=== PATIENT | female | born 1990 | race Caucasian/White ===

== ENCOUNTER 2017-05-16 20:21 | Emergency (ER) | payer MEDICAID ==
[2017-05-16] MEDS ORDERED: ACETAMINOPHEN 500 MG TAB PO ONE (21:23)
[2017-05-16] MEDS ORDERED: IBUPROFEN 600 MG TAB PO ONE (21:23)
[2017-05-16] MEDS ORDERED: HYDROCOD/APAP 5/325 PREPACK#6 BTL TAKEHOME ONE (21:37)
--- NOTE | 2017-05-16 21:37 | EDPHY ---
H & P Stated Complaint: l knee dislocation 1 hour ago, back in place with increased pain Source: Patient Exam Limitations: No limitations - Personal History LMP (Females 10-55): 22-28 Days Ago Current Tetanus/Diphtheria Vaccine: Yes - Medical/Surgical History Hx Asthma: Yes Hx Chronic Respiratory Disease: No Hx Diabetes: No Hx Cardiac Disease: No Hx Renal Disease: No Hx Cirrhosis: No Hx Alcoholism: No Hx HIV/AIDS: No Hx Splenectomy or Spleen Trauma: No Other PMH: Asthma - Social History Smoking Status: Never smoked HPI/ROS: CHIEF COMPLAINT: Knee injury HISTORY OF PRESENT ILLNESS: Patient complains of left knee pain. This started after she jumped out of the bed of her pickup truck within the past 2 hours. She says she felt her lower leg stress into a valgus position. She says her patella may have subluxed or dislocated. Her knee did not dislocate. She has sudden onset of pain over the medial aspect of the knee in mildly anteriorly. Able to bear weight but very painful to do so. Does not radiate. No numbness or tingling. No pain in the ipsilateral hip, heel or foot. No pain in the low back. No head strike or loss of conscious. No other associated complaints or modifying factors. Does have a history of previous patellar dislocation. PRIOR ORTHO INJURIES: Previous patellar dislocation and subluxation ESTABLISHED ORTHOPEDIST: None REVIEW OF SYSTEMS: Ten systems reviewed and are negative unless otherwise noted in the HPI EXAMINATION General Appearance: Alert, no distress Cardiovascular: Pulses normal throughout. Symmetric DP and PT pulses at 2+. Brisk cap refill Neurological: A&O, sensory symmetric, strength symmetric. No foot drop. Normal proprioception of the great toe Skin: Warm and dry, no rash. No lacerations abrasions or contusions Extremities: Tenderness over the medial joint line on the left knee and the MCL origin insertion. There is no laxity. There is normal extension of the knee without deficit or pain anteriorly. Negative drawer test. Negative Erwin. Range of motion of the left ankle help her fully intact. Psychiatric: Mood and affect normal DIFFERENTIAL DIAGNOSES: Including but not limited to sprain, strain, contusion, fracture, dislocation MDM: 9:37 p.m. Acute sprain of the left MCL. There is no patellar dislocation or fracture. No evidence of knee dislocation. No evidence of patellar tendon rupture. No fracture of the knee on x-ray. She is neurovascular intact distally. We will place her in an [place] wrap and provided crutches. Discharged home weight-bearing as tolerated. Mandatory follow up with Orthopedics for definitive care. Return to ER precautions for worsening pain, numbness, tingling, weakness. ED Precautions: Worsening pain. Erythema, edema, cyanosis, pallor, paresthesia or anesthesia. SUPERVISION: This patient was independently evaluated without direct examination by the attending physician. Case was discussed with attending physician. (Vinay Pierson) Constitutional: Initial Vital Signs Temperature (C) 37.0 C 05/16/17 20:23 Heart Rate 75 05/16/17 20:23 Respiratory Rate 16 05/16/17 20:23 Blood Pressure 127/87 H 05/16/17 20:23 O2 Sat (%) 96 05/16/17 20:23 O2 Delivery Mode Room Air Allergies/Adverse Reactions: Sulfa (Sulfonamide Antibiotics) Allergy (Unknown, Verified 05/16/17 20:27) Home Medications: Medication Instructions Recorded Albuterol INH Prepack [Proventil 2 puffs IH Q4 PRN #1 mdi 04/25/10 INH Prepack] Montelukast Sodium [Singulair] 4 mg PO 05/16/17 Medical Decision Making ED Course/Re-evaluation: I did not see this patient while she was in the emergency department. However her care was discussed with the PA while the patient was in the department. I agree with treatment plan and management (Vikram Chavis) - Data Points Medications Given: Discontinued Medications Acetaminophen (Tylenol) 1,000 mg PO EDNOW ONE Stop: 05/16/17 21:24 Last Admin: 05/16/17 21:36 Dose: Not Given Hydrocodone Bitart/Acetaminophen ([employer] 5/325mg Prepack#6) 1 btl TAKEHOME EDNOW ONE Stop: 05/16/17 21:38 Last Admin: 05/16/17 21:58 Dose: 1 btl Ibuprofen (Motrin) 600 mg PO EDNOW ONE Stop: 05/16/17 21:24 Last Admin: 05/16/17 21:35 Dose: 600 mg Departure - Departure Disposition: Home, Routine, Self-Care Clinical Impression: Knee MCL sprain, Acute knee pain Condition: Good Instructions: Hydrocodone/Acetaminophen (By mouth), Knee Sprain (ED) Additional Instructions: 1. Follow up with Orthopedics for definitive care 2. Weightbearing as tolerated, advance slowly 3. Return to ER for worsening pain, numbness, tingling, cyanosis or pallor 4. Ibuprofen or Aleve [id number] as instructed as needed Referrals: Nichole Huber PA [Primary Care Provider] - As per Instructions Vitaliy Marie MD [Medical Doctor] - As per Instructions
[2017-05-16 22:10] VITALS: BP 116/73; PULSE 80; RESP 15; TEMP 98.1; O2SAT 95
== END 2017-05-16 22:09 | disposition home or self-care (01) ==
DX: S83.412A Sprain of medial collateral ligament of left knee, initial encounter (principal); J45.909 Unspecified asthma, uncomplicated; X58.XXXA Exposure to other specified factors, initial encounter; Y99.8 Other external cause status; Y93.39 Activity, other involving climbing, rappelling and jumping off

== ENCOUNTER 2018-09-09 06:34 | Inpatient (IN) | payer MEDICAID ==
[2018-09-09] MEDS ORDERED: IBUPROFEN 600 MG TAB PO PRN (07:54)
[2018-09-09] MEDS ORDERED: OXYTOCIN/RINGERS LACTATE 1,000 ML IV PRN (07:54)
[2018-09-09] MEDS ORDERED: LR 1,000 ML IV PRN (07:54)
[2018-09-09] MEDS ORDERED: EPSOM SALT 454 GM TP PRN (07:54)
[2018-09-09] MEDS ORDERED: OLIVE OIL 118 ML BTL MISC PRN (07:54)
[2018-09-09] MEDS ORDERED: OXYTOCIN/RINGERS LACTATE 500 ML IV SCH (07:54)
[2018-09-09] MEDS ORDERED: LIDOCAINE 1% 300 MG/30 ML SDV SC PRN (07:54)
[2018-09-09] MEDS ORDERED: TERBUTALINE SULFATE 1 MG/ML VIAL IV PRN (07:54)
[2018-09-09] MEDS ORDERED: MISOPROSTOL 200 MCG TAB PR PRN (07:54)
[2018-09-09] MEDS ORDERED: LR 500 ML IV PRN (07:54)
[2018-09-09] MEDS ORDERED: LIDOCAINE 1% 300 MG/30 ML SDV ONE (08:02)
[2018-09-09 08:03] LABS: PLATELET COUNT 163 10^3/uL (150-400)
[2018-09-09] MEDS ORDERED: TERBUTALINE SULFATE 1 MG/ML VIAL ONE (08:03)
[2018-09-09] MEDS ORDERED: MISOPROSTOL 200 MCG TAB ONE (08:03)
[2018-09-09] MEDS ORDERED: OXYTOCIN 10 UNIT/ML VIAL ONE (08:03)
[2018-09-09] MEDS ORDERED: AMMONIA AROMATIC 1 EACH AMP IH ONE (08:03)
[2018-09-09] MEDS ORDERED: OLIVE OIL 118 ML BTL ONE (08:03)
[2018-09-09] MEDS ORDERED: fentaNYL 200 MCG, BUPIVACAINE 0.5% 20 ML in NS 100 ML EP SCH (09:30)
[2018-09-09] MEDS ORDERED: BUPIVACAINE 0.25% 30 ML SDV ONE (09:40)
[2018-09-09] MEDS ORDERED: PHENYLEPHRINE HCL 100 MCG/ML SYR ONE (09:40)
[2018-09-09] MEDS ORDERED: ONDANSETRON 4 MG/2 ML VIAL IVP PRN (10:04)
[2018-09-09] MEDS ORDERED: NALOXONE HCL 0.4 MG/ML INJ IVP PRN (10:04)
--- NOTE | 2018-09-09 10:07 | PREANESOB ---
Obstetric Pre-Anesthesia Info - General Info Proposed Procedure: Labor Epidural - Info Status: Postmature - Labor Status Indications for Labor Analgesia: Pain Control Labor Epidural: Yes Anesthesia Allergies/Adverse Reactions: Allergy/AdvReac Type Severity Reaction Status Date / Time Sulfa (Sulfonamide Allergy Unknown Verified 05/16/17 20:27 Antibiotics) Home Medications: Medication Instructions Recorded Albuterol INH Prepack [Proventil 2 puffs IH Q4 PRN #1 mdi 04/25/10 INH Prepack] Montelukast Sodium [Singulair] 4 mg PO 05/16/17 Visit Medications: Generic Name Dose Route Start Last Admin Trade Name Freq PRN Reason Stop Dose Admin Lactated Ringer's 1,000 mls @ 0 mls/hr 09/09/18 07:54 09/09/18 08:15 Lr IV 09/10/18 07:53 1,000 mls PRN PRN Administration SEE PROTOCOL CONDITIONS Protocol Per Protocol Lactated Ringer's 500 mls @ 500 mls/hr 09/09/18 07:54 Lr IV PRN PRN Maternal Hypotension Oxytocin/Lactated Ringer's 1,000 mls @ 125 mls/hr 09/09/18 07:54 Pitocin 20 Units/Lr (Premix) IV PRN PRN Post bleeding Oxytocin/Lactated Ringer's 500 mls @ 0 mls/hr 09/09/18 07:54 09/09/18 08:15 Pitocin 30 Units/Lr (Premix) IV 03/08/19 07:53 500 mls CONT MIRI Administration Protocol Per Protocol Fentanyl 200 mcg/ Bupivacaine 100 mls @ mls/hr 09/09/18 09:30 HCl 20 ml/ Sodium Chloride EP 09/19/18 09:29 CONT MIRI As Directed Fentanyl/Bupivacaine HCl 100 mls @ 0 mls/hr 09/09/18 10:30 Fentanyl/Bupivacaine/Ns 2 Mcg/Ml 0.1% (Premix EP 09/19/18 10:29 CONT MIRI Protocol As Directed Lactated Ringer's 500 mls @ 0 mls/hr 09/09/18 10:30 Lr IV 03/08/19 10:29 CONT MIRI As Directed Ibuprofen 600 mg 09/09/18 07:54 Motrin PO ONCE PRN post , pain Lidocaine HCl 300 mg 09/09/18 07:54 Lidocaine Hcl 1% SC 03/08/19 07:53 ONCE PRN episiotomy Magnesium Sulfate 454 gm 09/09/18 07:54 Epsom Salt TP 03/08/19 07:53 Q1H PRN perineal discomfort Misoprostol 800 - 1,000 mcg 09/09/18 07:54 Cytotec RI ONCE PRN Vaginal Atony/Bleeding Naloxone HCl 0.4 mg 09/09/18 10:04 Narcan IVP 03/08/19 10:03 PRN PRN Respiratory depression Gate Oil 118 ml 09/09/18 07:54 Sweet Oil MISC 03/08/19 07:53 ONCE PRN perineal massage Ondansetron HCl 4 mg 09/09/18 10:04 Zofran IVP 09/10/18 10:03 Q4HRS PRN Nausea/Vomiting, Can't Take PO Terbutaline Sulfate 0.25 mg 09/09/18 07:54 Brethine IV 03/08/19 07:53 ONCE PRN Tachysystole Discontinued Medications Generic Name Dose Route Start Last Admin Trade Name Lutherq PRN Reason Stop Dose Admin Ammonia (Aromatic Spirit) Confirm 09/09/18 08:03 Ammonia Aromatic Administered 09/09/18 08:04 Dose 1 each IH .STK-MED ONE Bupivacaine HCl Confirm 09/09/18 09:40 Sensorcaine 0.25% Sdv Administered 09/09/18 09:41 Dose 30 ml .ROUTE .STK-MED ONE Lidocaine HCl Confirm 09/09/18 08:02 Lidocaine Hcl 1% Administered 09/09/18 08:03 Dose 300 mg .ROUTE .STK-MED ONE Misoprostol Confirm 09/09/18 08:03 Cytotec Administered 09/09/18 08:04 Dose 1,000 mcg .ROUTE .STK-MED ONE Gate Oil Confirm 09/09/18 08:03 Sweet Oil Administered 09/09/18 08:04 Dose 118 ml .ROUTE .STK-MED ONE Oxytocin Confirm 09/09/18 08:03 Pitocin Administered 09/09/18 08:04 Dose 40 unit .ROUTE .STK-MED ONE Phenylephrine HCl Confirm 09/09/18 09:40 Neosynephrine Administered 09/09/18 09:41 Dose 1,000 mcg .ROUTE .STK-MED ONE Terbutaline Sulfate Confirm 09/09/18 08:03 Brethine Administered 09/09/18 08:04 Dose 1 mg .ROUTE .STK-MED ONE - Focused Exam Neck exam: FROM Mallampati Score: Class 2 Mouth exam: normal dental/mouth exam Pulmonary: clear to auscultation Cardiovascular: regular rate and rhythym Labs: 09/09/18 07:50 Patient ABO/Rh O POSITIVE 09/09/18 07:50 - Plan Consent Signed and on Chart: Yes
--- NOTE | 2018-09-09 10:20 | OBPROG ---
Labor Progress Note Assessment/Plan: Assessment: 28 y/o @ 42 weeks IOL secondary to post dates Plan: AROM now for clear fluid, continue pitocin per protocol. Pt is doing well with her epidural now. 09/09/18 10:17 Subjective/Intrapartum Course: 09/09/18 10:14 Pt is now comfortable with her epidural. She is having min contractions. 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
--- NOTE | 2018-09-09 10:22 | GHP ---
DATE OF ADMISSION: 09/09/2018 ADMITTING DIAGNOSIS: Intrauterine at 42 weeks gestation for induction of labor secondary t o postdates. HISTORY OF PRESENT ILLNESS: The patient a 28-year-old, 3, para 2-0-0-2, with a last menstrua l period of 11/08/2017, and EDC of 08/26/2018, confirmed by an 8-week ultrasound. She has had good p renatal care at [facility] since registration at 8 weeks' gestation. Her risk fac tors include positive THC on urine drug screen in 1st trimester, negative at 36 weeks. She is a presley ier for Shon-Pick disorder. The father of the baby was negative. She had an ASCUS positive HPV P ap. Colpo was done. Appeared to be YESSENIA 1-2. No biopsies were done. Needs to be repeated postpartu m. She had a placenta previa at 20 weeks, which resolved at 32. No other risk factors. The patient desires induction of labor today, 42 weeks. She has no significant contractions right now. No vagi nal bleeding, leakage of fluid. Her baby has been moving well. PAST OBSTETRICAL HISTORY: In December of 2006, she had a viable male 6 pounds 8 ounces, 38 weeks, 6 carlos rs of labor. In September of 2011, she had an another viable male, 6 pounds 4 ounces, induction of la bor at 42 weeks, and this is her 3rd . PAST GYNECOLOGICAL HISTORY: She has a normal menstrual triad with menarche at age 11 interval every 28 days, length 7 days. Her last menstrual period of 11/08/2017. Ultrasound confirmed her dates. PAST MEDICAL HISTORY: Significant for asthma, and she uses an inhaler as needed. PAST SURGICAL HISTORY: No significant past surgical history. ALLERGIES: Presumed allergy to sulfa as a child. CURRENT MEDICATIONS: Include albuterol p.r.n., vitamins with DHA. LABORATORY DATA: She is O positive. Antibody negative. RPR nonreactive. Rubella immune. Hepatiti s negative. HIV negative. Cystic fibrosis, SMA, fragile X negative. 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 Father of the baby has been negative. Toxo was negative. Varicella w as immune. Pap ASCUS positive HPV. Gonorrhea and chlamydia negative. Verify was negative. AFP was negative. 1-hour GTT 118, and GBS was negative. FAMILY HISTORY: Noncontributory. SOCIAL HISTORY: She is . She lives with her , [place], and her 2 children. She works a [employer]. She denies tobacco or alcohol use in . Had marijuana use prior to , but none in . OBJECTIVE: GENERAL: Today she is afebrile. VITAL SIGNS: Stable. heart tones are 130s, reac tive, moderate variability category 1, lidia irregularly. : Cervix on exam on Sunday, was 2 and 60% -2. Deferred this morning until she is in active labor. ASSESSMENT AND PLAN: A 28-year-old, 3, para 2-0-0-2, who is 42 weeks gestation for induction of labor, secondary to post dates. The patient is on Pitocin now. We will desire an epidural for p ain control and AROM when she is in active labor and comfortable with epidural. /[id number]/MODL
[2018-09-09] MEDS ORDERED: fentaNYL 2MCG/ML/BUP 0.1% RTU 100 ML EP SCH (10:30)
[2018-09-09] MEDS ORDERED: LR 500 ML IV SCH (10:30)
--- NOTE | 2018-09-09 12:18 | OBPROG ---
Labor Progress Note Assessment/Plan: Assessment: 28 y/o @ 42 weeks IOL secondary to post dates Plan: She has had min cervical change now. Will continue to increase pitocin per protocol. Baby has good consistent variability but not significant accelerations, will continue to monitor closely. 09/09/18 10:17 09/09/18 12:17 Subjective/Intrapartum Course: 09/09/18 10:14 Pt is now comfortable with her epidural. She is having min contractions. 09/09/18 12:16 Pt is feeling some increased contractions, no pelvic pressure, sill overall comfortable. 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
--- NOTE | 2018-09-09 14:34 | OBPROG ---
Labor Progress Note Assessment/Plan: Assessment: 28 y/o @ 42 weeks IOL secondary to post dates Plan: She continues to make slow cervical change. Fetus has + accelerations and improved variability with scalp stim and placement of IUPC and FSE. Will dose pitocin until adequate mU. status is overall reassuring. 09/09/18 10:17 09/09/18 12:17 09/09/18 14:33 Subjective/Intrapartum Course: 09/09/18 10:14 Pt is now comfortable with her epidural. She is having min contractions. 09/09/18 12:16 Pt is feeling some increased contractions, no pelvic pressure, sill overall comfortable. 09/09/18 14:31 Pt continues to be comfortable with the epidural. 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
--- NOTE | 2018-09-09 17:04 | OBPROG ---
Labor Progress Note Assessment/Plan: Assessment: 28 y/o @ 42 weeks IOL secondary to post dates Plan: She continues to make slow cervical change. Baby has had more accelerations and improved variability. Her contractions have been adequate with pitocin @ 20 mu, however the change is very slow. We have tried extreme side lying positioning, will try hands and knees with the recinos bag now and re check 1-2 hours. 09/09/18 10:17 09/09/18 12:17 09/09/18 14:33 09/09/18 17:03 Subjective/Intrapartum Course: 09/09/18 10:14 Pt is now comfortable with her epidural. She is having min contractions. 09/09/18 12:16 Pt is feeling some increased contractions, no pelvic pressure, sill overall comfortable. 09/09/18 14:31 Pt continues to be comfortable with the epidural. 09/09/18 17:02 Pt is doing well, aware of contractions but not uncomfortable. 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
--- NOTE | 2018-09-09 19:06 | OBPROG ---
Labor Progress Note Assessment/Plan: Assessment: 28 y/o @ 42 weeks IOL secondary to post dates Plan: Pt is getting closer and feeling more pressure. We will bolus the epidural now and give 30 minutes to check again. 09/09/18 10:17 09/09/18 12:17 09/09/18 14:33 09/09/18 17:03 09/09/18 19:04 Subjective/Intrapartum Course: 09/09/18 10:14 Pt is now comfortable with her epidural. She is having min contractions. 09/09/18 12:16 Pt is feeling some increased contractions, no pelvic pressure, sill overall comfortable. 09/09/18 14:31 Pt continues to be comfortable with the epidural. 09/09/18 17:02 Pt is doing well, aware of contractions but not uncomfortable. 09/09/18 19:03 Pt is feeling more pressure and pain specifically in her right hip. 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
[2018-09-09] MEDS ORDERED: oxyCODONE IR 5 MG TAB PO PRN (20:05)
[2018-09-09] MEDS ORDERED: SIMETHICONE 80 MG TAB CHEW PO PRN (20:05)
[2018-09-09] MEDS ORDERED: HYDROCORTISONE 0.5% CREAM TP PRN (20:05)
[2018-09-09] MEDS ORDERED: DOCUSATE SODIUM 100 MG CAP PO PRN (20:05)
--- NOTE | 2018-09-09 20:09 | OBDEL ---
Info Type: Vaginal Presentation at Delivery: Vertex L&D Analgesia/Anesthesia Type: Epidural GBS+: No Intrapartum Medications: Generic Name Dose Route Start Last Admin Trade Name Freq PRN Reason Stop Dose Admin Lactated Ringer's 1,000 mls @ 0 mls/hr 09/09/18 07:54 09/09/18 08:15 Lr IV 09/10/18 07:53 1,000 mls PRN PRN Administration SEE PROTOCOL CONDITIONS Protocol Per Protocol Oxytocin/Lactated Ringer's 500 mls @ 0 mls/hr 09/09/18 07:54 09/09/18 08:15 Pitocin 30 Units/Lr (Premix) IV 03/08/19 07:53 500 mls CONT MIRI Administration Protocol Per Protocol Discontinued Medications Generic Name Dose Route Start Last Admin Trade Name Freq PRN Reason Stop Dose Admin Oxytocin/Lactated Ringer's 1,000 mls @ 125 mls/hr 09/09/18 07:54 09/09/18 20: 03 Pitocin 20 Units/Lr (Premix) IV 1,000 mls PRN PRN Administration Post bleeding - Hospital Course Intrapartum: 09/09/18 10:14 Pt is now comfortable with her epidural. She is having min contractions. 09/09/18 12:16 Pt is feeling some increased contractions, no pelvic pressure, sill overall comfortable. 09/09/18 14:31 Pt continues to be comfortable with the epidural. 09/09/18 17:02 Pt is doing well, aware of contractions but not uncomfortable. 09/09/18 19:03 Pt is feeling more pressure and pain specifically in her right hip. Indications for Delivery: Postterm Favorable Cervix Vaginal Delivery - Delivery Provider Delivery Physician/CNM: Janet Sullivan - Labor and Delivery Onset of Contractions Date: 09/09/18 Onset of Contractions Time: 09:00 Rupture of Membranes Date: 09/09/18 Rupture of Membranes Time: 10:11 Rupture of Membranes Type: Artificial Amniotic Fluid Color: Clear Dilation Complete Date: 09/09/18 Dilation Complete Time: 19:40 Placenta Delivery Date: 09/09/18 Placenta Delivery Time: 19:48 Total Hours of Labor: 10 Non-surgical Procedures: Amniotomy, FSE, IUPC Laceration: 1st Degree Repair: 3-0, Vicryl Vaginal Sponge Count Correct: Yes Vaginal Needle Count Correct: Yes Vaginal Sweep Performed: Yes EBL: 350 Delivery Events: None - Medications Labor Augmentation/Induction Methods Used: Pitocin Labor Augmentation/Induction Indication: Post Dates [place] Data ASHLEE: 08/26/18 Gestational Age: 42 week(s) and 0 day(s) Steiner Delivery Date: 09/09/18 Delivery Time: 19:43 Sex of Infant: Female [place] Weight (gm): 3454 g Score (1 Min): 8 Score (5 Min): 9 ICD10 Worksheet Patient Problems: Problems Problem Status Onset Encounter for induction of labor Acute (spontaneous vaginal delivery) Acute - ICD10 Problem Qualifiers (1) Encounter for induction of labor (2) (spontaneous vaginal delivery)
[2018-09-09] MEDS: ACETAMINOPHEN 325 MG TAB PO SCH (21:05)
[2018-09-10] MEDS: ACETAMINOPHEN 325 MG TAB PO SCH ×4 (02:55→23:16)
[2018-09-10] MEDS: IBUPROFEN 600 MG TAB PO SCH ×4 (02:55→23:16)
--- NOTE | 2018-09-10 13:32 | OBGCSDC ---
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 She is having min contractions. 09/09/18 12:16 Pt is feeling some increased contractions, no pelvic pressure, sill overall comfortable. 09/09/18 14:31 Pt continues to be comfortable with the epidural. 09/09/18 17:02 Pt is doing well, aware of contractions but not uncomfortable. 09/09/18 19:03 Pt is feeling more pressure and pain specifically in her right hip. : 09/10/18 13:29 Pt seen and examined. Pt just getting out of the tub and enjoyed her bath. Doing well with no complaints. Mild cramping noted. Mod lochia. Pt is OOB, justin regular diet, voiding and passing flatus. BF well without difficulty. Desires to go home later this evening. Vaginal - Delivery Provider Delivery Physician/CNM: Janet Sullivan - Diagnosis Rupture of Membranes Type: Artificial Amniotic Fluid Color: Clear Laceration: 1st Degree Repair: 3-0, Vicryl Delivery Events: None - Procedures Non-surgical Procedures: Amniotomy, FSE, IUPC - Delivery Non-surgical Procedures: Amniotomy, FSE, IUPC EBL: 350 [place] Data ASHLEE: 08/26/18 Gestational Age: 42 week(s) and 1 day(s) Steiner Delivery Date: 09/09/18 Delivery Time: 19:43 Sex of : Female [place] Weight (gm): 3454 g Score (1 Min): 8 Score (5 Min): 9 Discharge Information - Discharge Information Condition: Good Instruction/Follow Up: Four Weeks, Six Weeks
--- NOTE | 2018-09-10 13:32 | OBPP ---
Progress Note Assessment/Plan: Assessment: s/p PPD # 1 - pt is stable Plan: Continue routine pp care They want to go home later this evening Plan for d/c home Instructions reviewed with pt No Rx given Cont PNV Pelvic rest RTC in 4 weeks for a mood check and 6 weeks for a pp check 09/10/18 13:28 Subjective/ Course: 09/10/18 13:29 Pt seen and examined. Pt just getting out of the tub and enjoyed her bath. Doing well with no complaints. Mild cramping noted. Mod lochia. Pt is OOB, justin regular diet, voiding and passing flatus. BF well without difficulty. Desires to go home later this evening. Objective: 09/09/18 07:50 Patient ABO/Rh O POSITIVE 09/09/18 07:50 Temp Pulse Resp BP Pulse Ox 37.2 C 90 16 128/78 H 97 09/09/18 23:22 09/09/18 23:22 09/09/18 23:22 09/09/18 23:22 09/09/18 23:22 Uterine Position/Fundal Height: Umbilicus -2 Uterine Tone: Firm Physical Exam - Physical Exam General Appearance: WD/WN, alert, no apparent distress Respiratory: lungs clear, normal breath sounds Cardiac/Chest: regular rate, rhythm Abdomen: normal bowel sounds, non-tender, soft, flatus (+) Extremities: non-tender, normal inspection Skin: normal color, warm/dry Neuro/Psych: alert, normal mood/affect, oriented x 3
--- NOTE | 2018-09-10 18:59 | POSTANESTH ---
Post Anesthetic Evaluation Cardiovascular Status: Normal, Stable Respiratory Status: Normal, Stable Level of Consciousness/Mental Status: Can Participate in Eval Pain Control: Adequate, Prn Tx Ordered Nausea/Vomiting Control: Adequate, Prn Tx Ordered Complications Possibly Related to Anesthesia: None Noted (Pt. reports excellent analgesia from STORM; delivered at 7:43 pm, yesterday. No residual numbnes/ weakness/difficulty urinating or ambulating/headache, visual difficulties. PE: pinpoint tenderness/redness at needle entry point.)
[2018-09-11] MEDS: IBUPROFEN 600 MG TAB PO SCH (05:13)
[2018-09-11] MEDS: ACETAMINOPHEN 325 MG TAB PO SCH (05:13)
--- NOTE | 2018-09-11 09:55 | OBPP ---
Progress Note Assessment/Plan: Assessment: ppd# 2 s/p uncomplicated post course breast feeding rh+/RI/GBS neg discharge instructions Plan: 09/11/18 09:53 Subjective/ Course: 09/10/18 13:29 Pt seen and examined. Pt just getting out of the tub and enjoyed her bath. Doing well with no complaints. Mild cramping noted. Mod lochia. Pt is OOB, justin regular diet, voiding and passing flatus. BF well without difficulty. Desires to go home later this evening. 09/11/18 09:53 patient is doing well. pain is well controlled. normal lochia. denies headache and changes in vision. breast feeding is going well. ambulating. passing gas. voiding without difficulty. ready to go home. mood stable. Objective: 09/09/18 07:50 Patient ABO/Rh O POSITIVE 09/09/18 07:50 Temp Pulse Resp BP Pulse Ox 36.6 C 77 16 125/88 H 97 09/10/18 19:25 09/10/18 19:25 09/10/18 19:25 09/10/18 19:25 09/09/18 23:22 Physical Exam - Physical Exam EENT: PERRL/EOMI, normal ENT inspection Neck: non-tender, full range of motion Respiratory: chest non-tender, lungs clear, normal breath sounds Cardiac/Chest: normal peripheral pulses, regular rate, rhythm Abdomen: normal bowel sounds, non-tender, other (fundus firm and non tender) Extremities: normal range of motion, non-tender, normal inspection, normal capillary refill Skin: normal color, warm/dry Neuro/Psych: no motor/sensory deficits, alert, normal mood/affect, oriented x 3
--- NOTE | 2018-09-11 09:55 | OBGCSDC ---
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 She is having min contractions. 09/09/18 12:16 Pt is feeling some increased contractions, no pelvic pressure, sill overall comfortable. 09/09/18 14:31 Pt continues to be comfortable with the epidural. 09/09/18 17:02 Pt is doing well, aware of contractions but not uncomfortable. 09/09/18 19:03 Pt is feeling more pressure and pain specifically in her right hip. : 09/10/18 13:29 Pt seen and examined. Pt just getting out of the tub and enjoyed her bath. Doing well with no complaints. Mild cramping noted. Mod lochia. Pt is OOB, justin regular diet, voiding and passing flatus. BF well without difficulty. Desires to go home later this evening. 09/11/18 09:53 patient is doing well. pain is well controlled. normal lochia. denies headache and changes in vision. breast feeding is going well. ambulating. passing gas. voiding without difficulty. ready to go home. mood stable. Vaginal - Delivery Provider Delivery Physician/CNM: Janet Sullivan - Diagnosis Rupture of Membranes Type: Artificial Amniotic Fluid Color: Clear Laceration: 1st Degree Repair: 3-0, Vicryl Delivery Events: None - Procedures Non-surgical Procedures: Amniotomy, FSE, IUPC - Delivery Non-surgical Procedures: Amniotomy, FSE, IUPC EBL: [address] Data ASHLEE: 08/26/18 Gestational Age: 42 week(s) and 2 day(s) [place] Delivery Date: 09/09/18 Delivery Time: 19:43 Sex of Infant: Female Weight (gm): 3454 g Score (1 Min): 8 Score (5 Min): 9 Discharge Information - Discharge Information Condition: Good Instruction/Follow Up: Four Weeks, Six Weeks
[2018-09-11 11:35] VITALS: BP 119/75
== END 2018-09-11 11:15 | disposition home or self-care (01) | DRG 560 ==
LOC: FLD 06:34 → FOB 23:01
PROVIDERS: ADMIT Obstetrics & Gynecology; ATTEND Obstetrics & Gynecology
DX: O48.0 Post-term pregnancy (principal); O70.0 First degree perineal laceration during delivery; Z37.0 Single live birth; Z3A.42 42 weeks gestation of pregnancy
CPT/HCPCS: J2370; J2590; J3010; J3105

== ENCOUNTER 2019-01-09 06:10 | Day surgery (SDC) | payer MEDICAID ==
--- NOTE | 2018-12-26 19:10 | GHP ---
[f rep st] PREOP HISTORY AND PHYSICAL DATE OF ADMISSION: 01/09/2019 DATE OF SURGERY: 01/09/2019, 7:15 a.m. PROCEDURE: 1. Laparoscopic bilateral salpingectomy. 2. Cold knife conization of the cervix. SURGEON: Dr. Janet Sullivan. PREOPERATIVE DIAGNOSES: Severe cervical dysplasia and multiparity. Desires permanent elective steri lization. HISTORY OF PRESENT ILLNESS: Cassidy is a 28-year-old, 3, para 3-0-0-3, who had a spontaneo us vaginal delivery of a 3rd baby girl on September 09, 2018. She desires permanent sterilization with a laparoscopic salpingectomy. Patient has completed childbearing, has had difficulties with oral co ntraceptive pills in her past, is reluctant to have an IUD because of worry about complications. She is certain that she does not want to bear children again and she wants to be sterilized. At her visit, patient had a Pap smear because she had an abnormal Pap in . Her P ap on November 01, 2018, revealed high-grade squamous and intraepithelial lesion and was positive for HPV type 16. She underwent a colposcopy and the colposcopy biopsies revealed YESSENIA 3 in her biopsies a s well as her endocervical curettings. Because of her severe cervical dysplasia positive in the endo cervical canal, the recommendation was made for a cold knife conization of the cervix. Because beny ovalles has completed childbearing, I also offered her hysterectomy to treat her cervical dysplasia. Jesscia nava declined hysterectomy, wishes to have the 2 less invasive procedures with a laparoscopic salpinge ctomy and a cold knife conization of the cervix. PAST MEDICAL HISTORY: She has a history of asthma, uses inhaler as needed. No other chronic medical problems. SURGICAL HISTORY: History of a wisdom tooth extraction and that is all. OBSTETRICAL HISTORY: She is 3, para 3. In December of 2006 she had a viable male 6 pounds 8 oun juan, vaginal delivery without complication. In September of 2011, another viable male 6 pounds 4 ounc es, 42 weeks induction and successful vaginal delivery and this baby was born in September of 2018, a viable female. She weighed 7 pounds 10 ounces, successful vaginal delivery. GYNECOLOGICAL HISTORY: She had menarche at age 11. She has cycles every 28 days. Length of 7 days. She has a normal last menstrual period. She has history of Depo-Provera, control pills and M rashida in the past, which was unsuccessful for her. Her Pap in showed atypical cells of und etermined significance and positive for HPV and then her repeat Pap, , was high-grade. She has not had abnormal Paps before or any sexually transmitted diseases. ALLERGIES: She is allergic to sulfa, causes a rash. MEDICATIONS: Her only meds include albuterol inhaler, vitamins and DHA and she is currently breast-feeding her daughter. SOCIAL HISTORY: She is . She lives with her , [place], and her 3 children. She works a [employer]. She denies tobacco, alcohol, or drug use. FAMILY HISTORY: Her mother has hypercholesterolemia, also has epilepsy. Mom has depression. Matern al grandmother had Alzheimer disease. Paternal grandfather also had dementia and Parkinson's. Mom h ad melanoma and that is all. SUBJECTIVE: VITAL SIGNS: Today blood pressure is 112/76, weight is 178 pounds. GENERAL: She is wel l-developed, well-nourished white female in no acute distress. LUNGS: Clear to auscultation bilatera lly. HEART: Regular rate and rhythm, no murmur. ABDOMEN: Soft, nontender, nondistended. Normal bowel sounds. PELVIC: Normal external genitalia. Well-healed from delivery. Cervix is grossly normal. Ut erus is anteverted, anteflexed, mobile, nontender, nondistended. No masses. ASSESSMENT AND PLAN: 28-year-old 3, para 3-0-0-3, for 2 procedures: 1. Laparoscopic bilateral salpingectomy. Patient has completed childbearing. She has 3 children. She declines other forms of contraception. She wishes to have her salpingectomy. She was consented for that procedure. She understands the risks and benefits. The risks including bleeding, infection , damage to organs, uterus, tubes, ovaries, bowel, bladder, nerves, blood vessels, ureters, need for open procedure, need for additional procedures. She understands that this is permanent and cannot be reversed. 2. Severe cervical dysplasia. Positive endocervical curettage with HPV type 16. She will have a co ld knife conization of cervix. She understood the risks and benefits of that procedure. The risks i ncluding bleeding, infection, damage to the cervix and the vagina, pain, and need for additional proc edures if pathology is more severe at the time. She understood the risks and benefits of both of the se procedures and agreed to proceed. /[id number]/MODL
[2019-01-09] MEDS ORDERED: ceFAZolin 2 GM/DEXTROSE 100 ML IV ONE (06:18)
[2019-01-09] MEDS ORDERED: LR 1,000 ML IV ONE (06:19)
[2019-01-09] MEDS ORDERED: SCOPOLAMINE HYDROBROMIDE 1 MG/3 DAYS PATCH TD ONE (06:46)
[2019-01-09] MEDS ORDERED: MIDAZOLAM 2 MG/2 ML VIAL IVP ONE (06:46)
--- NOTE | 2019-01-09 06:47 | PDANEPAE ---
ANE Past Medical History - Cardiovascular History Hx Hypertension: No Hx Arrhythmias: No Hx Chest Pain: No Hx Coronary Artery / Peripheral Vascular Disease: No Hx CHF / Valvular Disease: No Hx Palpitations: No - Pulmonary History Hx COPD: No Hx Asthma/Reactive Airway Disease: Yes Hx Recent Upper Respiratory Infection: No Hx Oxygen in Use at Home: No Hx Sleep Apnea: No Sleep Apnea Screening Result - Last Documented: Negative Pulmonary History Comment: SEASONAL ALLERGIES ENVIRONMENTAL ESPECIALLY HORSES. HAS PRN INHALER - Neurologic History Hx Cerebrovascular Accident: No Hx Seizures: Yes Hx Dementia: No Neurologic History Comment: AT AGE 1 ONE TIME/FEVER RELATED - Endocrine History Hx Diabetes: No - Renal History Hx Renal Disorders: No - Liver History Hx Hepatic Disorders: No - Neurological & Psychiatric Hx Hx Neurological and Psychiatric Disorders: No - Cancer History Hx Cancer: No - Congenital Disorder History Hx Congenital Disorders: No - GI History Hx Gastrointestinal Disorders: No - Other Health History Other Health History: CERVICAL DYSPLASIA/HPV. MISSING TEETH. MELLO MCL KNEE TEARS - Chronic Pain History Chronic Pain: Yes (MELLO KNEE'S) - Surgical History Prior Surgeries: WISDOM TEETH ANE Review of Systems Review of Systems: - Exercise capacity METS (RN): 4 METS ANE Patient History - Allergies Allergies/Adverse Reactions: Sulfa (Sulfonamide Antibiotics) Allergy (Unknown, Verified 01/07/19 11:13) Other-Enter Comments - Home Medications Home Medications: Albuterol [Proventil Inhaler HFA (*)] 1 - 2 puffs IH Q4H PRN 01/07/19 [Last Taken 06/07/18] Vits96/Iron Fum/Folic [ Tablet] 1 each PO DAILY 01/07/19 [Last Taken 01/08/19] - NPO status NPO Since - Liquids (Date): 01/09/19 NPO Since - Liquids (Time): 05:00 NPO Since - Solids (Date): 01/09/19 NPO Since - Solids (Time): 21:00 - Anes Hx Anes Hx: post operative nausea - Smoking Hx Smoking Status: Never smoked - Family Anes Hx Family Hx Anesthesia Complications: MOM--LONG WAKE UP TIME ANE Labs/Vital Signs - Vital Signs Blood Pressure: 124/83 Heart Rate: 86 Respiratory Rate: 15 O2 Sat (%): 92 Height: 154.94 cm Weight: 80.739 kg ANE Physical Exam - Airway Neck exam: FROM Mouth exam: normal dental/mouth exam - Pulmonary Pulmonary: clear to auscultation - Cardiovascular Cardiovascular: regular rate and rhythym - ASA Status ASA Status: I
[2019-01-09] MEDS ORDERED: PROPOFOL 200 MG/20 ML VIAL ONE (07:02)
[2019-01-09] MEDS ORDERED: fentaNYL 100 MCG/2 ML INJ ONE ×2 (07:02→08:05)
[2019-01-09] MEDS ORDERED: PROPOFOL/EMULSION 500 MG/50 ML BOTTLE IV ONE ×2 (07:02→08:04)
[2019-01-09] MEDS ORDERED: ROCURONIUM 50 MG/5 ML VIAL ONE (07:07)
--- NOTE | 2019-01-09 07:13 | PDHPUP ---
History & Physical Update H&P update statement: This history and physical update is based on an assessment of the patient which was completed after admission or registration (within 24 hours), but prior to the surgery/procedure. H&P update: H&P reviewed & patient examined, no change in patient's condition since H&P completed
[2019-01-09] MEDS ORDERED: LIDOCAINE 1% 300 MG/30 ML SDV ONE (07:23)
[2019-01-09] MEDS ORDERED: BUPIVACAINE/EPI 0.5% 30 ML SDV ONE (07:23)
[2019-01-09] MEDS ORDERED: SILVER NITRATE APPLICATOR 1 APPL TP ONE (07:23)
[2019-01-09] MEDS ORDERED: VASOPRESSIN 20 UNIT/ML VIAL ONE (07:24)
[2019-01-09] MEDS ORDERED: MONSELS-FERRIC SUBSULFATE 8 GM SDV TP ONE (07:25)
[2019-01-09] MEDS ORDERED: RANITIDINE 50 MG/2 ML VIAL ONE (07:43)
[2019-01-09] MEDS ORDERED: ONDANSETRON 4 MG/2 ML VIAL ONE ×2 (07:43)
[2019-01-09] MEDS ORDERED: DEXAMETHASONE 4 MG/ML VIAL ONE ×3 (07:43)
[2019-01-09] MEDS ORDERED: KETOROLAC 30 MG/1 ML SDV ONE (07:46)
[2019-01-09] MEDS ORDERED: SUGAMMADEX SODIUM 200 MG/2 ML VIAL IVP ONE ×2 (08:12→08:16)
[2019-01-09] MEDS ORDERED: oxyCODONE IR 5 MG TAB PO PRN (08:18)
[2019-01-09] MEDS ORDERED: ONDANSETRON 4 MG/2 ML VIAL IVP PRN (08:18)
[2019-01-09] MEDS ORDERED: HYDROmorphONE/DILAUDID 1 MG/ML INJ IVP PRN (08:18)
[2019-01-09] MEDS ORDERED: NALOXONE HCL 0.4 MG/ML INJ IVP PRN (08:18)
[2019-01-09] MEDS ORDERED: DEXAMETHASONE 4 MG/ML VIAL IVP PRN (08:18)
[2019-01-09] MEDS ORDERED: DIAZEPAM 5 MG/ML 1 ML SYR IVP PRN (08:18)
[2019-01-09] MEDS ORDERED: ACETAMINOPHEN 500 MG TAB PO PRN (08:18)
[2019-01-09] MEDS ORDERED: PROMETHAZINE HCL 25 MG/ML INJ IVP PRN (08:18)
[2019-01-09] MEDS ORDERED: LR 500 ML IV PRN (08:18)
[2019-01-09] MEDS ORDERED: MEPERIDINE 25 MG/0.5 ML AMP IVP PRN (08:18)
[2019-01-09] MEDS ORDERED: METOCLOPRAMIDE 10 MG/2 ML VIAL IVP PRN (08:18)
[2019-01-09] MEDS ORDERED: ALBUTEROL 3 ML DEYVIAL IH PRN (08:18)
[2019-01-09] MEDS ORDERED: fentaNYL 100 MCG/2 ML INJ IVP PRN (08:18)
[2019-01-09] MEDS ORDERED: METOCLOPRAMIDE 10 MG/2 ML VIAL ONE (08:19)
[2019-01-09] MEDS ORDERED: IBUPROFEN 600 MG TAB PO PRN (08:47)
--- NOTE | 2019-01-09 08:51 | POSTOPPROG ---
Post Op Note Date of Operation: 01/09/19 Surgeon: Janet Sullivan Digital Community Manager: Dr Ulisses Rock Anesthesiologist: Dr Carlos Anesthesia: GET(General Endotracheal) Pre-op Diagnosis: desires sterilization, severe cervical dysplasia Post-op Diagnosis: same Procedure: Laparoscopic B salpingectomy, cold knife conization of cervix Inf/Abcess present in the surg proc area at time of surgery?: No Depth: Organ Space EBL: Minimal Total fluids administered: 500 Complications: none Bowel Protocol: No Clean Closure Performed: Yes Specimen(s): bilateral fallopian tubes, cervical cone
--- NOTE | 2019-01-09 09:08 | POSTANESTH ---
Post Anesthetic Evaluation Cardiovascular Status: Normal, Stable Respiratory Status: Normal, Stable Level of Consciousness/Mental Status: Can Participate in Eval Pain Control: Adequate, Prn Tx Ordered Nausea/Vomiting Control: Adequate, Prn Tx Ordered Complications Possibly Related to Anesthesia: None Noted
--- NOTE | 2019-01-09 09:35 | GOP ---
[f rep st] OPERATIVE REPORT DATE OF OPERATION: 01/09/2019 SURGEON: Janet Sullivan MD SUPERANNUATION CLERK: Umesh Rock MD. ANESTHESIA: General anesthesia. ANESTHESIOLOGIST: Shannan Carlos MD. PREOPERATIVE DIAGNOSIS: 1. Multiparity, desires permanent elective sterilization. 2. Severe cervical dysplasia involving the endocervix. POSTOPERATIVE DIAGNOSIS: 1. Multiparity, desires permanent elective sterilization. 2. Severe cervical dysplasia involving the endocervix. PROCEDURE PERFORMED: 1. Laparoscopic bilateral salpingectomy. 2. Cold knife conization of the cervix. FINDINGS: SPECIMENS: Pathologic specimens are bilateral fallopian tubes and cervical cone. ESTIMATED BLOOD LOSS: Estimated blood loss for the procedure was less than 10 cc. INDICATIONS: The patient is a 29-year-old, 3, para 3-0-0-3, who had a spontaneous vaginal de livery of her third baby girl on September 09, 2018. She desires permanent elective sterilization with a tubal ligation/salpingectomy. She does not want to bear more children and has had difficulties wi th other contraceptives in the past. She is aware of all her other options and is sure that she want s to be sterilized. She also had an abnormal Pap in , HGSIL. A followup Pap rev ealed HGSIL with positive high-risk HPV type 16. Colposcopy revealed YESSENIA 3 in all of her biopsies, a s well as her endocervical curettings. Because of this, the recommendation is a cold knife conizatio n of the cervix, and these 2 procedures will be done concurrently. The patient understood the risks and benefits, the risks including bleeding, infection, damage to internal organs, uterus, tubes, ovar ies, bowel, bladder, nerves, blood vessels, or ureters; need for open procedure or need for additiona l procedures. She also understood the risks of the conization, the possible need for additional proc edures at a later time, and recurrence of the condition. She understood these risks and benefits, an d agreed to the procedure. DESCRIPTION OF PROCEDURE: The patient was taken to the operating room where she was placed under gen eral anesthesia without difficulty. She was prepped and draped in the dorsal lithotomy position, and her bladder was drained with a red rubber catheter. After adequate anesthesia was assured and a WHO timeout was performed, an open-sided speculum was placed in the vagina. A single-tooth tenaculum wa s used to grasp the anterior lip of the cervix. An acorn uterine manipulator was placed through that manipulator and attached to the tenaculum. Attention was then turned to the abdominal portion of the procedure. After injection of Marcaine, a 5 mm skin incision was made in the infraumbilical skin fold. A Veress needle was placed. There was a good normal drop in pressure seen, and pneumoperitoneum was created with carbon dioxide gas. The p atient was placed in steep Trendelenburg. After injection of Marcaine, a 5 mm skin incision was made in the left lower quadrant, and under direct visualization an atraumatic trocar was placed through t his incision, as well as in the right. The fallopian tubes, ovaries, and uterus were all seen, and a ll her anatomy was grossly within normal limits. The fimbriated end of the left fallopian tube was g rasped with an atraumatic grasper, and the Gyrus was used to cauterize and cut from the fimbriated en d along the mesosalpinx to the cornual region of the uterus. The tube was removed through the 5 mm p ort without difficulty. Identical procedure was performed with the right, grasping the right fallopi an tube at the fimbriated end, using the Gyrus to cauterize and cut along the mesosalpinx to the corn ual region, and the tube was removed directly. Small areas of bleeding were cauterized with the Gyru s, and good hemostasis was obtained. Inspection of the pelvis again revealed normal anatomy and good hemostasis. The appendix, as well as the liver and gallbladder were visualized, and were normal. T he pneumoperitoneum was allowed to escape. Trocars were removed under direct visualization, and the skin was closed with 4-0 Monocryl. Additional Marcaine was injected in all 3 incisions for postopera tive pain control. Attention was then turned to the vaginal portion of the procedure. The tenaculum and the Pawlet uteri ne manipulator were removed, and visualization of the cervix was normal. A single-tooth tenaculum wa s used to grasp the anterior portion of the cervix above where the cone would be performed, and a 1:1 00 dilution of vasopressin was made and was injected throughout the entire cervical stroma. The curv ed 11 blade was then used to perform the cone in a circumferential fashion. The specimen was then gr asped, and Botello scissors were used to extend the dissection and complete the cone. The cone was jonah destiny and will be sent directly for pathology. The entire bed of the cervix was then cauterized aggres sively with the Bovie cautery. Monsel was placed in the bed, and good hemostasis was assured. The s peculum and the retractor were removed. The patient tolerated the procedure well. Sponge, lap, need le, and instrument counts were correct x3. The patient went to the recovery room in good condition. URINE OUTPUT: Not measured. IV FLUIDS: 500 cc. /[id number]/MODL
[2019-01-09 11:24] VITALS: BP 133/76
== END 2019-01-09 11:45 | disposition home or self-care (01) ==
LOC: F3E 06:10 → UNDOADMOB 06:10 → FSGY 06:10 → EDSTATUS 07:15 → UNDODISOB 11:45 → FSGY 11:45
PROVIDERS: ATTEND Obstetrics & Gynecology
PROC: 0UBC8ZZ Excision of Cervix, Via Natural or Artificial Opening Endoscopic (ICD-10-PCS; principal; 2019-01-09 07:15)
PROC: 0UT74ZZ Resection of Bilateral Fallopian Tubes, Percutaneous Endoscopic Approach (ICD-10-PCS; principal; 2019-01-09 07:15)
DX: D06.0 Carcinoma in situ of endocervix (principal); Z30.2 Encounter for sterilization
CPT/HCPCS: J0690; J1100; J1885; J2250; J2405; J2704; J2765; J2780; J3010

== ENCOUNTER 2019-01-09 18:27 | Observation (INO) | payer MEDICAID ==
[2019-01-09 19:03] LABS: PLATELET COUNT 256 10^3/uL (150-400)
[2019-01-09] MEDS ORDERED: TRANEXAMIC ACID 1,000 MG in NS 500 ML IV ONE ×2 (19:32→19:35)
[2019-01-09] MEDS ORDERED: TRANEXAMIC ACID 1,000 MG in NS 100 ML IV ONE (19:35)
[2019-01-09] MEDS ORDERED: fentaNYL 100 MCG/2 ML INJ IVP ONE ×2 (19:42→20:25)
[2019-01-09] MEDS ORDERED: ONDANSETRON 4 MG/2 ML VIAL ONE (20:51)
[2019-01-09] MEDS ORDERED: ONDANSETRON 4 MG/2 ML VIAL IVP ONE (20:56)
[2019-01-09 21:10] LABS: PLATELET COUNT 202 10^3/uL (150-400)
--- NOTE | 2019-01-09 22:00 | EDPHY ---
H & P Stated Complaint: excessive vaginal bleeding post tubal/cervical surg this am Time Seen by Provider: 01/09/19 18:37 HPI/ROS: Chief complaint: Postop vaginal bleeding History of present illness: This is a 29-year-old female who underwent a cold knife conization by Dr. Janet Sullivan. Patient reports upon coming home she started developed vaginal bleeding. She contacted her OBGYN who requested she come to the emergency room. She reports a moderate amount of vaginal bleeding. She denies any alleviating factors. She does state she has associated dizziness. She denies other associated signs or symptoms. Review of systems: A 10 point review of systems was obtained and other than described above was negative. - Personal History LMP (Females 10-55): Now Current Tetanus Diphtheria and Acellular Pertussis (TDAP): Yes - Medical/Surgical History Hx Asthma: Yes Hx Chronic Respiratory Disease: No Hx Diabetes: No Hx Cardiac Disease: No Hx Renal Disease: No Hx Cirrhosis: No Hx Alcoholism: No Hx HIV/AIDS: No Hx Splenectomy or Spleen Trauma: No Other PMH: Asthma tubal ligation/cold knife procedure/cervix - Social History Smoking Status: Never smoked - Physical Exam Exam: General Appearance: Alert, nontoxic. Eyes: Pupils equal and round no pallor or injection. ENT, Mouth: Mucous membranes moist. Respiratory: There are no retractions, lungs are clear to auscultation. Cardiovascular: Tachycardic. Gastrointestinal: Abdomen is soft and non tender, no masses, bowel sounds normal. Neurological: Alert and oriented. Skin: Warm and dry, no rashes. Musculoskeletal: Extremities are symmetrical, full range of motion. Psychiatric: Patient is oriented X 3, there is no agitation. Constitutional: Initial Vital Signs Temperature (C) 37.3 C 01/09/19 18:31 Heart Rate 125 H 01/09/19 18:31 Respiratory Rate 18 01/09/19 18:31 Blood Pressure 108/80 01/09/19 18:31 O2 Sat (%) 91 L 01/09/19 18:31 O2 Delivery Mode Room Air O2 (L/minute) 2 Allergies/Adverse Reactions: Sulfa (Sulfonamide Antibiotics) Allergy (Unknown, Verified 01/09/19 18:30) Other-Enter Comments Home Medications: Medication Instructions Recorded Albuterol [Proventil Inhaler HFA 1 - 2 puffs IH Q4H PRN 01/07/19 (*)] Vits96/Iron Fum/Folic 1 each PO DAILY 01/07/19 [ Tablet] Ibuprofen [Motrin (*)] 600 mg PO Q6HRS PRN #30 tab 01/09/19 oxyCODONE IR [Oxycodone Ir (*)] 5 - 10 mg PO Q4HRS PRN #10 tab 01/09/19 Medical Decision Making ED Course/Re-evaluation: Patient is discussed with my secondary supervising physician Dr. Janee Oneal. Patient presents to the emergency department with postoperative vaginal bleeding. She is tachycardic on presentation but her blood pressure is within normal limits. An IV was established an IV hydration was begun. Baseline blood studies including CBC, chemistry and type and screen were ordered. Dr. Matt milligan was immediately consulted, she was aware of the patient came straight to the emergency department for evaluation and control of bleeding. During this process patient was given a total of 150 mcg of fentanyl for pain control and was given transaminase acid for a bleeding control. Repeat H&H does show significant decline. Patient remains tachycardic when moving but at rest her 8 is within normal limits. She is maintaining a normal blood pressure. She does report a little bit of vaginal bleeding. She will be admitted to Dr. Mccracken so is overnight for observation. Plan has been discussed with the patient who voiced understanding and agreement with it. Differential Diagnosis: Included but was not limited to Postop vaginal bleeding, coagulopathy - Data Points Laboratory Results: Laboratory Results 01/09/19 20:56 01/09/19 18:48 01/09/19 01/09/19 01/09/19 20:56 18:48 18:48 WBC 15.32 10^3/uL H 10^3/uL (3.80-9.50) RBC 4.41 10^6/uL 10^6/uL (4.18-5.33) Hgb 11.4 g/dL L g/dL (12.6-16.3) Hct 35.8 % L % (38.0-47.0) MCV 81.2 fL L fL (81.5-99.8) MCH 25.9 pg L pg (27.9-34.1) MCHC 31.8 g/dL L g/dL (32.4-36.7) RDW 13.9 % % (11.5-15.2) Plt Count 202 10^3/uL 10^3/uL (150-400) MPV 9.8 fL fL (8.7-11.7) Neut % (Auto) 80.2 % H % (39.3-74.2) Lymph % (Auto) 13.1 % L % (15.0-45.0) Bowman % (Auto) 6.1 % % (4.5-13.0) Eos % (Auto) 0.0 % L % (0.6-7.6) Baso % (Auto) 0.1 % L % (0.3-1.7) Nucleat RBC Rel Count 0.0 % % (0.0-0.2) Absolute Neuts (auto) 12.30 10^3/uL H 10^3/uL (1.70-6.50) Absolute Lymphs (auto) 2.00 10^3/uL 10^3/uL (1.00-3.00) Absolute Monos (auto) 0.93 10^3/uL H 10^3/uL (0.30-0.80) Absolute Eos (auto) 0.00 10^3/uL L 10^3/uL (0.03-0.40) Absolute Basos (auto) 0.02 10^3/uL 10^3/uL (0.02-0.10) Absolute Nucleated RBC 0.00 10^3/uL 10^3/uL (0-0.01) Immature Gran % 0.5 % % (0.0-1.1) Immature Gran # 0.07 10^3/uL 10^3/uL (0.00-0.10) Sodium 137 mEq/L mEq/L (135-145) Potassium 4.6 mEq/L mEq/L (3.5-5.2) Chloride 103 mEq/L mEq/L (97-110) Carbon Dioxide 23 mEq/l mEq/l (22-31) Anion Gap 11 mEq/L mEq/L (6-14) BUN 12 mg/dL mg/dL (7-23) Creatinine 0.8 mg/dL mg/dL (0.6-1.0) Estimated GFR > 60 Glucose 111 mg/dL H mg/dL (70-100) Calcium 9.0 mg/dL mg/dL (8.5-10.4) Patient ABO/Rh O POSITIVE Antibody Screen NEGATIVE 01/09/19 18:48 WBC 12.19 10^3/uL H 10^3/uL (3.80-9.50) RBC 5.49 10^6/uL H 10^6/uL (4.18-5.33) Hgb 14.4 g/dL g/dL (12.6-16.3) Hct 45.2 % % (38.0-47.0) MCV 82.3 fL fL (81.5-99.8) MCH 26.2 pg L pg (27.9-34.1) MCHC 31.9 g/dL L g/dL (32.4-36.7) RDW 13.9 % % (11.5-15.2) Plt Count 256 10^3/uL 10^3/uL (150-400) MPV 10.2 fL fL (8.7-11.7) Neut % (Auto) 81.8 % H % (39.3-74.2) Lymph % (Auto) 12.6 % L % (15.0-45.0) Bowman % (Auto) 5.1 % % (4.5-13.0) Eos % (Auto) 0.0 % L % (0.6-7.6) Baso % (Auto) 0.2 % L % (0.3-1.7) Nucleat RBC Rel Count 0.0 % % (0.0-0.2) Absolute Neuts (auto) 9.98 10^3/uL H 10^3/uL (1.70-6.50) Absolute Lymphs (auto) 1.53 10^3/uL 10^3/uL (1.00-3.00) Absolute Monos (auto) 0.62 10^3/uL 10^3/uL (0.30-0.80) Absolute Eos (auto) 0.00 10^3/uL L 10^3/uL (0.03-0.40) Absolute Basos (auto) 0.02 10^3/uL 10^3/uL (0.02-0.10) Absolute Nucleated RBC 0.00 10^3/uL 10^3/uL (0-0.01) Immature Gran % 0.3 % % (0.0-1.1) Immature Gran # 0.04 10^3/uL 10^3/uL (0.00-0.10) Sodium Potassium Chloride Carbon Dioxide Anion Gap BUN Creatinine Estimated GFR Glucose Calcium Patient ABO/Rh Antibody Screen Medications Given: Tranexamic Acid 1,000 mg/ (Sodium Chloride) 510 mls @ 63.75 mls/hr IV ONCE ONE Stop: 01/10/19 03:34 Last Admin: 01/09/19 19:55 Dose: Not Given Discontinued Medications Fentanyl (Sublimaze) 75 mcg IVP EDNOW ONE Stop: 01/09/19 19:43 Last Admin: 01/09/19 19:52 Dose: 75 mcg Fentanyl (Sublimaze) 75 mcg IVP EDNOW ONE Stop: 01/09/19 20:26 Last Admin: 01/09/19 20:32 Dose: 75 mcg Tranexamic Acid 1,000 mg/ (Sodium Chloride) 510 mls @ 63.75 mls/hr IV ONCE ONE Stop: 01/10/19 03:31 Last Admin: 01/09/19 19:56 Dose: Not Given Tranexamic Acid 1,000 mg/ (Sodium Chloride) 110 mls @ 660 mls/hr IV ONCE ONE Stop: 01/09/19 19:44 Last Admin: 01/09/19 19:51 Dose: 110 mls Ondansetron HCl (Zofran) 4 mg IVP EDNOW ONE Stop: 01/09/19 20:57 Last Admin: 01/09/19 20:58 Dose: 4 mg Departure - Departure Disposition: [facility] Acute Clinical Impression: Vaginal bleeding Condition: Fair
[2019-01-09] MEDS ORDERED: oxyCODONE IR 5 MG TAB PO PRN (23:09)
[2019-01-09] MEDS ORDERED: ONDANSETRON 4 MG/2 ML VIAL IVP PRN (23:09)
[2019-01-09] MEDS ORDERED: ACETAMINOPHEN 325 MG TAB PO PRN (23:09)
[2019-01-09] MEDS ORDERED: ONDANSETRON DISINTEGRATING 4 MG TAB PO PRN (23:09)
[2019-01-09] MEDS ORDERED: ALBUTEROL 60 PUFFS/8 GM MDI IH PRN (23:16)
[2019-01-09] MEDS ORDERED: LR 1,000 ML IV SCH (23:45)
--- NOTE | 2019-01-09 23:47 | SOAPPROG ---
SOAP Progress Note Assessment/Plan: Assessment: ER CONSULTATION cannot dictate consult and procedure at this time as phone lines are down. Post op vaginal bleeding s/p CKC, LSC BS Plan: Pt seen in ER for approx 1 1/2 hours and multiple stitches placed on cervix. approx 500 cc EBL in ER - minimal bld after procedure - some monsels placed on cervix. 01/09/19 23:42 Subjective: Pt reports minimal pain although in procedure she asks for some IV pain meds that were offered. reports upon return home from OR today with LSC surgery, she only took one ibu. some lightheaded at home with heavy bleeding. bleeding much worse than menses. States near time to start menses - LMP 12/13 Objective: Vital Signs Temp Pulse Resp BP Pulse Ox 36.4 C 76 16 108/69 92 01/09/19 22:49 01/09/19 22:49 01/09/19 22:49 01/09/19 22:49 01/09/19 22:49 Procedure note: Pt positioned in dorsal lithotomy. pt urinated at home before arrival. Sterile speculum placed into vagina - abundant clots removed from vagina. betadine gauze wiped cx bed and vagina clean with multiple wipes. bleeding from CKC bed. 3:00 and 9:00 spots are visualized and suture placed x2 in each. then ant lip of cx bleeding and 12:00 stitch placed. Lastly a horizontal stitch was placed from 2:00 to 10:00. minimal bld after procedure . Pt cleaned off , able to sit a bit. Mild nausea. Physical Exam - Physical Exam General Appearance: alert Respiratory: lungs clear Cardiac/Chest: regular rate, rhythm Abdomen: non-tender (except at incision sites, old blood at umb site.) Pelvic Exam: normal external exam, vaginal bleeding (greater than a pad an hour - much heavier than menses) Skin: normal color, warm/dry Extremities: non-tender, pedal edema (mild) Neuro/Psych: no motor/sensory deficits, alert, normal mood/affect ICD10 Worksheet Patient Problems: Problems Problem Status Onset Postoperative vaginal bleeding following genitourinary procedure Acute Vaginal bleeding Acute
[2019-01-10] MEDS: IBUPROFEN 200 MG TAB PO PRN ×2 (00:21→05:23)
[2019-01-10 05:32] LABS: PLATELET COUNT 165 10^3/uL (150-400)
[2019-01-10 07:45] VITALS: BP 88/43
--- NOTE | 2019-01-10 08:43 | SOAPPROG ---
SOAP Progress Note Assessment/Plan: Assessment: 29 y/o POD #1 s/p lap BS, CKC admitted with heavy vaginal bleeding. Plan: Hct 32 this am. She is feeling much better after eating, and IVF. Will d/c home today with follow-up @ [facility] 2 weeks or 1 week prn. 01/10/19 08:44 Subjective: Pt is doing much better this am. She has light-headness and dizziness when she got up @ 5 am, but she has just had breakfast and feels much better now. She has had very little bleeding since arriving to the floor and feels ready to d.c home. Objective: Vital Signs Temp Pulse Resp BP Pulse Ox 37.1 C 83 18 88/43 L 89 L 01/10/19 07:44 01/10/19 07:44 01/10/19 07:44 01/10/19 07:44 01/10/19 07:44 Laboratory Results 01/10/19 05:15 01/09/19 01/10/19 01/11/19 05:59 05:59 05:59 Intake Total 576 Output Total 500 Balance 76 - Time Spent With Patient Time Spent With Patient: 30 min - Pending Discharge Pending Discharge Within 24 Hours: Yes Pending Discharge Date: 01/11/19 Pending Discharge Time: 11:00 Physical Exam - Physical Exam General Appearance: WD/WN, alert, no apparent distress Neck: non-tender, full range of motion, supple Respiratory: chest non-tender, lungs clear, normal breath sounds Cardiac/Chest: regular rate, rhythm Abdomen: normal bowel sounds, other (incision c/d/i) Extremities: swelling (no), Maco's sign (neg) ICD10 Worksheet Patient Problems: Problems Problem Status Onset Postoperative vaginal bleeding following genitourinary procedure Acute Vaginal bleeding Acute
--- NOTE | 2019-01-11 11:44 | SOAPPROG ---
SOAP Progress Note Assessment/Plan: Assessment: Phone call from patient: 29 yo P3, POD#2 s/p l'scopic bilateral salpingectomy and cold knife cone biopsy , c/b post op bleeding causing anemia. s/p additional sutures placed in CKC bed in ED hours after discharge home on POD #0. [place] Now with significant headache - called with concerns - likely due to combo of anemia at altitude, dehydration and stress. Plan: Encouraged to hydrate well - goal of >3 L water today. May take 1/2 oxycodone (was hesitant to take a whole one) and try to nap when her youngest (4 mo old) naps today. Call me this afternoon if no improvement or resolution of headache with rest / hydration / oxycodone. Continue taking iron supplement started yesterday. Nichole Berg MD, FACOG 01/11/19 11:39 Subjective: Pt called - concerned about throbbing LAFLEUR since 1700 yesterday, unresolved with ibuprofen or Tylenol. Did not try oxycodone - hesitant to take narcotic. Is having only spotting since dc home yesterday. No other symptoms. Normal bowel and bladder habits. Is 4 month old - production very low right now. Objective: Vital Signs Temp Pulse Resp BP Pulse Ox 37.1 C 83 18 88/43 L 89 L 01/10/19 07:44 01/10/19 07:44 01/10/19 07:44 01/10/19 07:44 01/10/19 07:44 Laboratory Results 01/10/19 05:15 01/10/19 01/11/19 01/12/19 05:59 05:59 05:59 Intake Total 576 Output Total 500 Balance 76 PHONE CALL _ DID NOT SEE PT ICD10 Worksheet Patient Problems: Problems Problem Status Onset Vaginal bleeding Acute Postoperative vaginal bleeding following genitourinary procedure Acute
== END 2019-01-10 13:49 | disposition home or self-care (01) ==
LOC: FOB 22:45
PROVIDERS: ADMIT Obstetrics & Gynecology; ATTEND Obstetrics & Gynecology
PROC: 0W3R7ZZ Control Bleeding in Genitourinary Tract, Via Natural or Artificial Opening (ICD-10-PCS; principal; 2019-01-09)
DX: N99.820 Postprocedural hemorrhage of a genitourinary system organ or structure following a genitourinary system procedure (principal); J45.909 Unspecified asthma, uncomplicated
CPT/HCPCS: 57720; G0378; J2405; J3010